=== PATIENT | male | born 1990 ===

== ENCOUNTER 2016-11-07 15:13 | Emergency (ER) | payer OTHER ==
[2016-11-07 15:32] VITALS: RESP 18
[2016-11-07 16:10] LABS: SQUAMOUS EPITHIAL < 1 /hpf (0-5); URINE BILIRUBIN NEGATIVE (NEGATIVE); URINE BLOOD NEGATIVE (NEGATIVE); URINE CLARITY Clear (Clear); URINE COLOR Yellow (YELLOW); URINE GLUCOSE (UA) NORMAL (Normal); URINE LEUKOCYTE ESTERASE NEG Leu/uL (Negative); URINE NITRATE NEGATIVE (NEGATIVE); URINE PROTEIN NEGATIVE (NEGATIVE); URINE UROBILINOGEN NORMAL mg/dL (0.2-1.0)
[2016-11-07] MEDS ORDERED: cefTRIAXone (Rocephin) 250 mg Inj IM STA (16:23)
--- NOTE | 2016-11-07 16:37 | C.PDOC ---
History Of Present Illness 26 year old male with no past medical history presents complaining of dysuria for 2.5 days. He states something "doesn't feel right when I urinate". He reports having unprotected sexual intercourse 1 week ago. He denies fever/chills , rashes, genital lesions, joint pain, discharge, changes in bowel habits, N/V, abdominal pain, diarrhea/constipation. He otherwise feels well and has no other complaints. (Doris Giron) History Per: Patient History/Exam Limitations: no limitations Onset/Duration Of Symptoms: Days Current Symptoms Are (Timing): Gone Severity: Mild Location Of Pain/Discomfort: Other (Genital) Radiation Of Pain To:: None Quality Of Discomfort: Burning Associated Symptoms: Urinary Symptoms. denies: Fever, Chills, Nausea, Vomiting , Diarrhea, Loss Of Appetite, Constipation Exacerbating Factors: None Alleviating Factors: None Last Bowel Movement: Today Recent travel outside of the [place]: No Time Seen by Provider: 11/07/16 15:56 Chief Complaint (Nursing): Abdominal Pain Past Medical History - Medical History PMH: No Chronic Diseases Surgical History: No Surg Hx Family History: States: Unknown Family Hx - Social History Hx Tobacco Use: No Hx Alcohol Use: No Hx Substance Use: No - Immunization History Hx Tetanus Toxoid Vaccination: No Hx Influenza Vaccination: Yes Hx Pneumococcal Vaccination: No Review Of Systems Constitutional: Negative for: Fever, Chills Cardiovascular: Negative for: Chest Pain, Palpitations Respiratory: Negative for: Cough, Shortness of Breath Gastrointestinal: Negative for: Nausea, Vomiting, Abdominal Pain, Diarrhea, Constipation Genitourinary: Positive for: Dysuria. Negative for: Frequency, Hematuria, Penile Discharge, Scrotal Pain, Rash, Penile Pain Musculoskeletal: Negative for: Back Pain Skin: Negative for: Rash, Lesions Neurological: Negative for: Weakness, Numbness Physical Exam - Physical Exam Appears: Well, Non-toxic, No Acute Distress Skin: Normal Color, Warm, Dry, No Rash Head: Atraumatic, Normacephalic Eye(s): bilateral: Normal Inspection Throat: Normal, No Erythema, No Exudate Neck: Normal Lymphatic: Normal Exam Cardiovascular: Rhythm Regular Respiratory: Normal Breath Sounds Gastrointestinal/Abdominal: Normal Exam, Bowel Sounds, Soft, No Tenderness, No Distention, No Guarding, No Hernia Back: Normal Inspection, No CVA Tenderness Male Genital: Normal Inspection, No Testicular Tenderness, No Testicular Swelling, No Inguinal Tenderness, No Inguinal Swelling, No Scrotal Swelling, Other (no lesions, no discharge, no tenderness) Extremity: Normal ROM, No Tenderness Neurological/Psych: Oriented x3, Normal Speech, Normal Cognition ED Course And Treatment O2 Sat by Pulse Oximetry: 99 Medical Decision Making Medical Decision Making: Plan: - UA Dysuria. UA negative. Given Ceftriaxone IM and Azithromycin PO given history. ( Doris Giron) Disposition - Disposition Disposition Time: 16:42 - Disposition Referrals: [facility] at [facility] [Outside] Disposition: HOME/ ROUTINE Condition: GOOD Additional Instructions: Patient to follow up with his primary care doctor within 1-2 days for follow up care. He is to return to the emergency room if symptoms persist/worsen or if he develops fever/chills. Instructions: Safe Sex (ED), Dysuria (ED) Forms: General Discharge Instructions - Clinical Impression Clinical Impression: Dysuria
[2016-11-07 17:06] VITALS: BP 124/78; PULSE 72; TEMP 97.8; O2SAT 97
== END 2016-11-07 17:06 | disposition home or self-care (01) ==
LOC: C.ER 15:13
DX: R30.0 Dysuria (principal)
CPT/HCPCS: 81001; 96372; 99284; J0696

== ENCOUNTER 2018-06-30 12:25 | Emergency (ER) | payer SELFPAY ==
[2018-06-30 12:56] VITALS: BP 140/84; PULSE 69; RESP 16; TEMP 98.9; O2SAT 99
[2018-06-30] MEDS ORDERED: Naproxen 550 mg Tab PO STA (13:37)
[2018-06-30] MEDS ORDERED: Naproxen 550 mg Tab PO ONE (13:47)
--- NOTE | 2018-06-30 13:56 | C.PDOC ---
History Of Present Illness 28 y/o male presents to the ED complaining pain to the bilateral shins and ankles for the past month, on and off. Patient reports pain worsens when at work. 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 He denies any blunt trauma or fall. Otherwise patient denies any fever, rashes, or other complaints. He reports he has been urinating normally, denies change in color to urine. Time Seen by Provider: 06/30/18 12:58 Chief Complaint (Nursing): Lower Extremity Problem/Injury History Per: Patient History/Exam Limitations: no limitations Onset/Duration Of Symptoms: Intermittent Episodes Current Symptoms Are (Timing): Still Present Past Medical History Reviewed: Historical Data, Nursing Documentation, Vital Signs Vital Signs: Last Vital Signs Temp 98.9 F 06/30/18 12:54 Pulse 69 06/30/18 12:54 Resp 16 06/30/18 12:54 BP 140/84 06/30/18 12:54 Pulse Ox 99 06/30/18 12:54 Family History: States: Unknown Family Hx - Social History Hx Tobacco Use: No Hx Alcohol Use: No Hx Substance Use: No - Immunization History Hx Tetanus Toxoid Vaccination: No Hx Influenza Vaccination: Yes Hx Pneumococcal Vaccination: No Review Of Systems Except As Marked, All Systems Reviewed And Found Negative. Constitutional: Negative for: Fever Cardiovascular: Negative for: Chest Pain Respiratory: Negative for: Cough, Shortness of Breath Musculoskeletal: Positive for: Leg Pain (aches to the bilateral shins and ankles) Skin: Negative for: Rash Neurological: Negative for: Weakness, Numbness, Incoordination Physical Exam - Physical Exam Appears: Non-toxic, No Acute Distress Skin: Warm, Dry, No Rash Head: Atraumatic, Normacephalic Eye(s): bilateral: Normal Inspection, PERRL, EOMI Oral Mucosa: Moist Neck: Normal ROM, Supple Chest: Symmetrical Cardiovascular: Rhythm Regular Respiratory: No Accessory Muscle Use, Other (Speaking in complete sentences) Gastrointestinal/Abdominal: Bowel Sounds (active), Soft, No Tenderness Back: No CVA Tenderness, No Vertebral Tenderness, No Paraspinal Tenderness Extremity: Normal ROM (of bilateral LE, ankles with full AROM), No Tenderness, No Deformity, No Swelling, Other (Able to bear weight) Pulses: Left Dorsalis Pedis: Normal, Right Dorsalis Pedis: Normal Neurological/Psych: Oriented x3, Normal Motor, Normal Sensation Gait: Steady ED Course And Treatment O2 Sat by Pulse Oximetry: 99 (RA) Pulse Ox Interpretation: Normal Medical Decision Making Medical Decision Making: Plan: * 550 mg PO Naproxen given for pain control Patient is stable for discharge home. Provided with RX for pain medication. Advised to take meds as prescribed and follow up with PMD. On re-exam, the patient reports improvement of symptoms. Lungs are CTA, heart is RRR, abdomen is soft, non-tender and tolerating PO well. Pt is ambulatory in the ED with steady gait. Follow up with the medical doctor within 1-2 days. Return if worsened. Disposition - Disposition Referrals: [facility] at [facility] [Outside] Podiatry Clinic [Outside] Disposition: HOME/ ROUTINE Disposition Time: 14:11 Condition: GOOD Additional Instructions: Follow up with the medical doctor within 1-2 days. Return if worsened. Prescriptions: Naproxen [Naprosyn] 500 mg PO BID #20 tab Instructions: Olivas Splints, Lower Extremity Muscle Strain (DC) Forms: [employer] (Montenegrin), Work Excuse - Clinical Impression Clinical Impression: Olivas splints - PA / HAM SAWYER / Resident Statement MD/DO has reviewed & agrees with the documentation as recorded. - Scribe Statement The provider has reviewed the documentation as recorded by the Scribe Patricia Kapadia All medical record entries made by the Scribe were at my direction and personally dictated by me. I have reviewed the chart and agree that the record accurately reflects my personal performance of the history, physical exam, medical decision making, and the department course for this patient. I have also personally directed, reviewed, and agree with the discharge instructions and disposition.
== END 2018-06-30 14:19 | disposition home or self-care (01) ==
LOC: C.ER 12:25
DX: S86.891A Other injury of other muscle(s) and tendon(s) at lower leg level, right leg, initial encounter (principal); S86.892A Other injury of other muscle(s) and tendon(s) at lower leg level, left leg, initial encounter; X58.XXXA Exposure to other specified factors, initial encounter